=== PATIENT | male | born 1995 | race Asian ===

== ENCOUNTER 2023-08-11 10:46 | Emergency (ER) | payer OTHER ==
[2023-08-11] MEDS: ONDANSETRON ODT 4 MG TABLET TL STA (12:40)
--- NOTE | 2023-08-11 13:09 | ED Physician Documentation ---
PD HPI NVD - Stated complaint Stated Complaint: N/V,BODY ACHES - Chief complaint Chief Complaint: Abd Pain - History obtained from History obtained from: Patient - Additonal information Additional information: Patient is a 27-year-old male with nausea vomiting and diarrhea for the past 2 days. Patient states that his 2 children and are also ill with similar symptoms but they are starting to improve. He states that he felt ill 2 days ago with vomiting. Yesterday he had 2 episodes of emesis that occurred after drinking too much fluids as well as 2 episodes of diarrhea. No blood in emesis or stools. This morning he has not had any emesis or diarrhea and he has been tolerating p.o. intake. Patient works at the [employer] and called in for work and the clinic was unable to see him so he was directed to the emergency department. He also reports having ongoing cough since he had COVID in June. He has not had a chest x-ray for this. He states that the cough is the same and does not feel worse. No fevers. No production to the cough. No sore throat. No abdominal pain. Review of Systems Constitutional: denies: Fever Cardiac: denies: Chest pain / pressure Respiratory: denies: Dyspnea GI: reports: Nausea, Vomiting, Diarrhea. denies: Abdominal Pain, Bloody / black stool : denies: Dysuria PD PAST MEDICAL HISTORY - Past Medical History Past Medical History: No - Past Surgical History Past Surgical History: No - Present Medications Home Medications: Ambulatory Orders Medication Instructions Recorded Confirmed Ondansetron Odt [Zofran] 4 mg TL Q6H PRN #10 tablet 08/11/23 - Allergies Allergies/Adverse Reactions: Allergies Allergy/AdvReac Type Severity Reaction Status Date / Time No Known Drug Allergies Allergy Verified 08/11/23 11:00 - Social History Does the pt smoke?: No Smoking Status: Never smoker Does the pt drink ETOH?: Yes Does the pt have substance abuse?: No - Immunizations Immunizations are current?: Yes PD ED PE NORMAL - General General: Alert and oriented X 3, No acute distress, Well developed/nourished - HEENT HEENT: Atraumatic, Moist mucous membranes, Pharynx benign - Neck Neck: Supple, no meningeal sign - Cardiac Cardiac: RRR, Strong equal pulses - Respiratory Respiratory: No respiratory distress, Clear bilaterally - Abdomen Abdomen: Normal bowel sounds, Soft, Non tender, Non distended - Derm Derm: Warm and dry - Neuro Neuro: Normal speech Results - Vitals Vitals: Vital Signs - 24 hr 08/11/23 08/11/23 10:53 13:15 Temperature 36.5 C Heart Rate 100 84 Respiratory 15 15 Rate Blood Pressure 146/95 H 140/78 H O2 Saturation 99 98 PD Medical Decision Making - ED course ED course: Patient with nausea, vomiting and diarrhea for the past 2 days with other family members with similar symptoms. Patient denies recent travel. No recent antibiotic use or other known risk factors for C. difficile. No vomiting or diarrhea today. His vital signs are stable and his abdominal exam is benign. Patient is feeling better here after p.o. Zofran. I did recommend a chest x-ray given his ongoing cough for the past 2 months but he would like to follow-up with the [place] clinic for this as he does not want to make his family wait too long.Patient is counseled on need for close follow-up, continued supportive care as well as concerning symptoms to return for. Departure - Departure Disposition: 01 Home, Self Care Clinical Impression: Nausea vomiting and diarrhea Condition: Stable Instructions: ED Diet Vomiting Diarrhea Follow-Up: [facility] [Provider Group] Prescriptions: Ondansetron Odt [Zofran] 4 mg TL Q6H PRN #10 tablet PRN Reason: Nausea / Vomiting Comments: I have sent a prescription for an antinausea medication to [facility] in [place]. Please continue with staying hydrated today with liquids. If you develop worsening symptoms such as ongoing vomiting or diarrhea please return to the ER for reevaluation. Due to the duration of your cough I did recommend we obtain a chest x-ray today. I understand you not wanting to stay today for chest x-ray but would recommend follow-up with [facility] to discuss getting 1 for your ongoing cough. Forms: PCP List, Activity restrictions Discharge Date/Time: 08/11/23 13:16
[2023-08-11 13:19] VITALS: BP 140/78; O2SAT 98
== END 2023-08-11 13:16 | disposition home or self-care (01) ==
LOC: ED 10:46
DX: R11.2 Nausea with vomiting, unspecified (principal); R19.7 Diarrhea, unspecified
CPT/HCPCS: 99282; 99283; Q0162